=== PATIENT | female | born 1940 | race Caucasian/White ===

== ENCOUNTER 2017-02-13 10:37 | Day surgery (SDC) | payer OTHER ==
[2017-02-13] MEDS ORDERED: LR 1,000 ML IV ONE (11:00)
[2017-02-13] MEDS ORDERED: LIDOCAINE 1% 2 ML INJ ID PRN (11:00)
--- NOTE | 2017-02-13 11:56 | PDANEPAE ---
ANE History of Present Illness colonoscopy and endoscopy ANE Past Medical History - Cardiovascular History Hx Hypertension: Yes Hx Arrhythmias: No Hx Chest Pain: No Hx Coronary Artery / Peripheral Vascular Disease: No Hx CHF / Valvular Disease: No Hx Palpitations: No Cardiovascular History Comment: hyperlipidemia. pcp monitors currently - Pulmonary History Hx COPD: No Hx Asthma/Reactive Airway Disease: No Hx Recent Upper Respiratory Infection: No Hx Oxygen in Use at Home: No Hx Sleep Apnea: No Sleep Apnea Screening Result - Last Documented: Negative - Neurologic History Hx Cerebrovascular Accident: No Hx Seizures: No Hx Dementia: No - Endocrine History Hx Diabetes: No Obesity: moderate Endocrine History Comment: hypothyroidism - Renal History Hx Renal Disorders: No - Liver History Hx Hepatic Disorders: No - Neurological & Psychiatric Hx Hx Neurological and Psychiatric Disorders: Yes Neurological / Psychiatric History Comment: depression - Cancer History Hx Cancer: No - Congenital Disorder History Hx Congenital Disorders: No - GI History GERD: moderate Hx Gastrointestinal Disorders: Yes Gastrointestinal History Comment: reflux. eoe - Other Health History Other Health History: wears glasses - Chronic Pain History Chronic Pain: Yes (bilateral feet currently) - Surgical History Prior Surgeries: 04/2009 back surgery. 04/2014 back surgery. 07/2015 kait. 2015 sinus surgery. ANE Review of Systems Review of Systems: - Exercise capacity METS (RN): 4 METS ANE Patient History - Allergies Allergies/Adverse Reactions: adhesive Allergy (Verified 02/11/17 16:45) Rash codeine [Codeine] Allergy (Verified 02/11/17 16:45) just doesn't seem to work meperidine HCl [From Demerol] Allergy (Verified 02/11/17 16:45) makes me sick as a dog and doesn't help pain - Home Medications Home Medications: Atorvastatin Calcium 02/11/17 [Last Taken 02/12/17] Calcium + D3 ER Tablet 02/11/17 [Last Taken 02/12/17] DULoxetine 02/11/17 [Last Taken 02/12/17] Diclofenac Sodium 02/11/17 [Last Taken 02/12/17] Diovan 02/11/17 [Last Taken 02/12/17] FOLIC ACID 02/11/17 [Last Taken 02/12/17] GABAPENTIN 02/11/17 [Last Taken 02/12/17] Hydrochlorothiazide 02/11/17 [Last Taken 02/12/17] L- Thyroxine 02/11/17 [Last Taken 02/13/17] MAGNESIUM 02/11/17 [Last Taken 02/12/17] Multi-Vitamin Daily 02/11/17 [Last Taken 02/12/17] Omeprazole Magnesium 02/11/17 [Last Taken 02/12/17] Osphena 02/11/17 [Last Taken 02/12/17] Oxybutynin 02/11/17 [Last Taken 02/12/17] Potassium Gluconate 02/11/17 [Last Taken 02/12/17] Probiotic 02/11/17 [Last Taken 02/12/17] Ranitidine HCl 02/11/17 [Last Taken 02/13/17] Vitamin D3 02/11/17 [Last Taken 02/12/17] - NPO status NPO Since - Liquids (Date): 02/13/17 NPO Since - Liquids (Time): 06:30 NPO Since - Solids (Date): 02/13/17 NPO Since - Solids (Time): 18:00 - Smoking Hx Smoking Status: Never smoked - Family Anes Hx Family Hx Anesthesia Complications: fathers heart stopped when she was 9 yo ANE Labs/Vital Signs - Vital Signs Blood Pressure: 145/74 Heart Rate: 78 Respiratory Rate: 16 O2 Sat (%): 99 Height: 154.94 cm Weight: 77.111 kg ANE Physical Exam - Airway Mallampati Score: Class 1 Mouth exam: normal dental/mouth exam - Pulmonary Pulmonary: no rales or rhonchi - Cardiovascular Cardiovascular: regular rate and rhythym - ASA Status ASA Status: II
[2017-02-13] MEDS ORDERED: MIDAZOLAM 2 MG/2 ML VIAL IVP ONE (11:58)
[2017-02-13] MEDS ORDERED: MIDAZOLAM 2 MG/2 ML VIAL ONE (12:00)
[2017-02-13] MEDS ORDERED: PROPOFOL 200 MG/20 ML VIAL ONE ×2 (12:00)
[2017-02-13] MEDS ORDERED: fentaNYL 100 MCG/2 ML INJ ONE (12:03)
--- NOTE | 2017-02-13 12:05 | PDGENHP ---
History & Physical Chief Complaint: Dysphagia, colon polyps History of Present Illness: Pt with worsening dysphagia with h/o EOE Pertinent Past, Social, Family History: never smoked, no fam hist for cc Relevant Physical Exam: cv rrr s1s2 nl. chest cta. abd + bs Cardiorespiratory Assessment: asa2
[2017-02-13] MEDS ORDERED: RANITIDINE 50 MG/2 ML VIAL ONE (12:06)
[2017-02-13] MEDS ORDERED: NALOXONE HCL 0.4 MG/ML INJ IVP PRN (12:41)
--- NOTE | 2017-02-13 12:50 | GIREPORT ---
[facility] - Endoscopy Department Patient Name: Gabbie Eisenberg Procedure Date: 02/13/2017 10:55 AM Patient Type: Outpatient Attending MD/ ER Physician: Smiley Felix MD Procedure: Upper GI endoscopy Indications: Dysphagia, H/O EoE Providers: Smiley Felix MD Medicines: Monitored Anesthesia Care Complications: No immediate complications. Description of Procedure: After obtaining informed consent, the endoscope was passed under direct vision. Throughout the procedure, the patient's blood pressure, pulse, and oxygen saturations were monitored continuously. The Endoscope was intro duced through the mouth, and advanced to the second part of duodenum. The [facility] er GI endoscopy was accomplished without difficulty. The patient tolerated th e procedure well. Findings: The lower third of the esophagus was moderately tortuous. The examined esophagus was normal. Biopsies were taken with a cold [facility] eps for histology. Estimated blood loss was minimal. The stomach was normal with some bile reflux. The examined duodenum was normal. Estimated Blood Loss: Estimated blood loss was minimal. Post Op Diagnosis: - Tortuous esophagus. - Normal esophagus. Biopsied. No strictures seen. - Normal stomach. - Normal examined duodenum. Recommendation: - Patient has a contact number available for emergencies. The signs and symptoms of potential delayed complications were discussed with the pat ient. Return to normal activities tomorrow. Written discharge instructions we re provided to the patient. - Resume previous diet. - Continue present medications. - Await pathology results. - If elevated EOE on biopsy then recommend Flovent BID for 8 weeks. If not consider esophageal manometry. - Return to nurse practitioner Jena Cerrato in 2 months. - Discharge patient to home. - Thank you for allowing me to participate in the care of your patient. Attending Participation: I personally performed the entire procedure. Smiley Felix MD Smiley Felix MD 02/13/2017 12:49:31 PM This report has been signed electronicallySmiley Felix MD Number of Addenda: 0 Note Initiated On: 02/13/2017 10:55 AM [email or web address]
--- NOTE | 2017-02-13 12:51 | GIREPORT ---
[facility] - Endoscopy Department Patient Name: Gabbie Eisenberg Procedure Date: 02/13/2017 10:54 AM Patient Type: Outpatient Attending MD/ ER Physician: Smiley Felix MD Procedure: Colonoscopy Indications: High risk colon cancer surveillance: Personal history of colonic polyps Providers: Smiley Felix MD Medicines: Monitored Anesthesia Care Complications: No immediate complications. Description of Procedure: After obtaining informed consent, the scope was passed under direct vis ion. Throughout the procedure, the patient's blood pressure, pulse, and oxyg en saturations were monitored continuously. The Colonoscope with irrigatio n channel was introduced through the anus and advanced to the cecum, identified by appendiceal orifice and ileocecal valve. The colonoscopy was performed without difficulty. The patient tolerated the procedure well. The quality of the bowel preparation was adequate. The ileocecal valve, appendiceal orifice, and rectum were photographed. Findings: The perianal and digital rectal examinations were normal. A few localized non-bleeding erosions were found in the sigmoid colon. Biopsies were taken with a cold forceps for histology. Estimated blood loss was minimal. Estimated Blood Loss: Estimated blood loss was minimal. Post Op Diagnosis: - A few erosions in the sigmoid colon. Biopsied. Suspect from prep effe ct. Recommendation: - Patient has a contact number available for emergencies. The signs and symptoms of potential delayed complications were discussed with the pat ient. Return to normal activities tomorrow. Written discharge instructions we re provided to the patient. - Resume previous diet. - Continue present medications. - Await pathology results. - Repeat colonoscopy in 5 years for surveillance. - Discharge patient to home. - Thank you for allowing me to participate in the care of your patient. Attending Participation: I personally performed the entire procedure. Smiley Felix MD Smiley Felix MD 02/13/2017 12:51:23 PM This report has been signed electronicallySmiley Felix MD Number of Addenda: 0 Note Initiated On: 02/13/2017 10:54 AM Total Procedure Duration Time 0 hours 13 minutes 57 seconds [email or web address]}
[2017-02-13 13:01] VITALS: PULSE 75
[2017-02-13 14:02] VITALS: O2SAT 96
[2017-02-13 14:03] VITALS: TEMP 97.7
--- NOTE | 2017-02-13 14:12 | POSTANESTH ---
Post Anesthetic Evaluation Cardiovascular Status: Normal, Stable Respiratory Status: Normal, Stable Level of Consciousness/Mental Status: Can Participate in Eval Pain Control: Adequate, Prn Tx Ordered Nausea/Vomiting Control: Adequate, Prn Tx Ordered Complications Possibly Related to Anesthesia: None Noted
[2017-02-13 14:18] VITALS: RESP 16
[2017-02-13 15:12] VITALS: BP 129/84
== END 2017-02-13 14:52 | disposition home or self-care (01) ==
LOC: FSGY 10:37
PROVIDERS: ATTEND Internal Medicine Gastroenterology
DX: Z12.11 Encounter for screening for malignant neoplasm of colon (principal); Z86.010 Personal history of colon polyps; K20.0 Eosinophilic esophagitis; R13.10 Dysphagia, unspecified; E03.9 Hypothyroidism, unspecified; I10 Essential (primary) hypertension; F32.9 Major depressive disorder, single episode, unspecified
CPT/HCPCS: 43235; G0104; J2250; J2704; J2780; J3010